=== PATIENT | female | born 2000 ===

== ENCOUNTER 2019-01-29 20:24 | Emergency (ER) | payer SELFPAY ==
--- NOTE | 2019-01-29 20:51 | ER Document Report ---
ED Medical Screen (RME) - General Chief Complaint: Numbness of Arm Stated Complaint: NUMBNESS Time Seen by Provider: 01/29/19 20:50 Mode of Arrival: Ambulatory Information source: Patient Notes: pt presents with c/o left arm numb, knot in throat feeling anxious. recently went to obgyn who told her her BP was high. LMP 3 I have greeted and performed a rapid initial assessment of this patient. A comprehensive ED assessment and evaluation of the patient, analysis of test results and completion of the medical decision making process will be conducted by additional ED providers. TRAVEL OUTSIDE OF THE [place] IN LAST 30 DAYS: No Doctor's Discharge - Discharge Disposition: LEFT WITHOUT BEING SEEN
== END 2019-01-29 21:20 | disposition left against medical advice (07) ==
LOC: ER 20:24
DX: R20.0 Anesthesia of skin (principal); F41.9 Anxiety disorder, unspecified
CPT/HCPCS: 99281